=== PATIENT | female | born 1935 | race Caucasian/White ===

== ENCOUNTER 2020-07-27 14:42 | Observation (INO) | payer MEDICARE, OTHER ==
[2020-07-27] MEDS ORDERED: SODIUM CHLORIDE 0.9% 1,000 ML IV STA (15:13)
[2020-07-27 15:44] LABS: Basophils % (A) 0 %; Eosinophils % (A) 0 %; HCT 35.1 % (34.0-46.0); Hypochromasia Moderate; Lymphocytes # (A) 2.1 k/uL (1.0-4.8); Lymphocytes % (A) 35 %; MCH 27.6 pg (25.0-35.0); MCHC 31.4 g/dL (31.0-37.0); MCV 87.7 fL (80.0-100.0); Mean Platelet Volume 7.8; Monocytes # (A) 0.6 k/uL (0-1.0); Monocytes % (A) 10 %; Neutrophils % (A) 50 %; Platelet Count 310 k/uL (150-450); RBC 4.01 m/uL (3.80-5.40); RDW 14.8 % (11.5-15.5)
[2020-07-27 15:53] LABS: INR 1.1 (<1.2); Prothrombin Time 10.9 sec (9.0-12.0)
[2020-07-27 16:11] LABS: Albumin 3.9 g/dL (3.5-5.0); Calcium 10.3 mg/dL (8.4-10.2); Potassium 3.9 mmol/L (3.5-5.1); Total Bilirubin 0.4 mg/dL (0.2-1.3); Total Protein 6.9 g/dL (6.3-8.2)
--- NOTE | 2020-07-27 16:21 | ED ---
Weakness HPI - General Chief complaint: Weakness Stated complaint: NSTEMI/UTI Time Seen by Provider: 07/27/20 14:55 Source: patient, EMS, RN notes reviewed, old records reviewed Mode of arrival: EMS Limitations: no limitations - History of Present Illness Initial comments: Patient is a 5-year-old female who presents emergency department today for transfer from [facility]. Patient had complaints at their hospital for general fatigue and nausea with bouts of emesis for the past 4 days. Patient reports that she's had increased anxiety and general weakness. Patient was at a [facility] emergency department last night as well as [facility] 2 weeks before. Patient was resistant on Lexapro for new anxiety medication. Patient was evaluated to the ER and [facility] today she was found to have the concerns for an and STEMI of the troponin of 0.035 as well as a urinary tract infection. She denies any current chest pains or shortness of breath. - Related Data Allergies Allergy/AdvReac Type Severity Reaction Status Date / Time No Known Allergies Allergy Verified 07/27/20 17:00 Review of Systems ROS Statement: Those systems with pertinent positive or pertinent negative responses have been documented in the HPI. ROS Other: All systems not noted in ROS Statement are negative. Past Medical History Past Medical History: Cancer, GERD/Reflux, Hypertension History of Any Multi-Drug Resistant Organisms: None Reported Additional Past Surgical History / Comment(s): cancer removal in face/head/neck Past Psychological History: No Psychological Hx Reported Smoking Status: Former smoker Past Alcohol Use History: None Reported Past Drug Use History: None Reported General Exam - General Exam Comments Initial Comments: 85-year-old female. Alert and oriented. No significant distress. Limitations: no limitations General appearance: alert, in no apparent distress Head exam: Present: atraumatic, normocephalic, normal inspection Eye exam: Present: normal appearance, PERRL, EOMI. Absent: scleral icterus, conjunctival injection, periorbital swelling ENT exam: Present: normal exam, mucous membranes moist Neck exam: Present: normal inspection. Absent: tenderness, meningismus, lymphadenopathy Respiratory exam: Present: normal lung sounds bilaterally. Absent: respiratory distress, wheezes, rales, rhonchi, stridor Cardiovascular Exam: Present: regular rate GI/Abdominal exam: Present: soft, normal bowel sounds. Absent: distended, tenderness, guarding, rebound, rigid Extremities exam: Present: normal inspection, full ROM, normal capillary refill. Absent: tenderness, pedal edema, joint swelling, calf tenderness Back exam: Present: normal inspection Neurological exam: Present: alert, oriented X3, CN II-XII intact Psychiatric exam: Present: normal affect, normal mood Skin exam: Present: warm, dry, intact, normal color. Absent: rash Course Vital Signs 07/27/20 14:45 Temperature 97.6 F Pulse Rate 87 Respiratory 17 Rate Blood Pressure 159/89 O2 Sat by Pulse 98 Oximetry Medical Decision Making - Medical Decision Making 85-year-old female transferred from [facility] for her lab values concerning for an STEMI as well as urinary tract infection. Patient was there she received IV fluids. She was in for generalized weakness. Patient was given triple 50 mg by mouth morphine for leg pain started on heparin after an STEMI. She denies any current chest pain. Patient also received ANTIbiotics for urinary tract infection. At this time Patient did have heparin discontinued she denies any chest pain in her second troponin is came back normal. Patient was informed that she will be admitted for general weakness, concerns for urinary tract infection and removal repeat troponin. Again she denies any chest pain or specific complaints as complains of general fatigue and weakness. - Lab Data Result diagrams: 07/27/20 15:27 07/27/20 15:27 Lab Results 07/27/20 07/27/20 07/27/20 Range/Units 15:27 15:27 15:27 WBC 6.0 (3.8-10.6) k/uL RBC 4.01 (3.80-5.40) m/uL Hgb 11.0 L (11.4-16.0) gm/dL Hct 35.1 (34.0-46.0) % MCV 87.7 (80.0-100.0) fL MCH 27.6 (25.0-35.0) pg MCHC 31.4 (31.0-37.0) g/dL RDW 14.8 (11.5-15.5) % Plt Count 310 (150-450) k/uL MPV 7.8 Neutrophils % 50 % Lymphocytes % 35 % Monocytes % 10 % Eosinophils % 0 % Basophils % 0 % Neutrophils # 3.0 (1.3-7.7) k/uL Lymphocytes # 2.1 (1.0-4.8) k/uL Monocytes # 0.6 (0-1.0) k/uL Eosinophils # 0.0 (0-0.7) k/uL Basophils # 0.0 (0-0.2) k/uL Hypochromasia Moderate PT 10.9 (9.0-12.0) sec INR 1.1 (<1.2) APTT 37.0 H (22.0-30.0) sec Sodium 136 L (137-145) mmol/L Potassium 3.9 (3.5-5.1) mmol/L Chloride 104 (98-107) mmol/L Carbon Dioxide 25 (22-30) mmol/L Anion Gap 7 mmol/L BUN 10 (7-17) mg/dL Creatinine 1.28 H (0.52-1.04) mg/dL Est GFR (CKD-EPI)AfAm 45 (>60 ml/min/1.73 sqM) Est GFR (CKD-EPI)NonAf 39 (>60 ml/min/1.73 sqM) Glucose 123 H (74-99) mg/dL Calcium 10.3 H (8.4-10.2) mg/dL Total Bilirubin 0.4 (0.2-1.3) mg/dL AST 34 (14-36) U/L ALT 19 (4-34) U/L Alkaline Phosphatase 88 (38-126) U/L Troponin I (0.000-0.034) ng/mL Total Protein 6.9 (6.3-8.2) g/dL Albumin 3.9 (3.5-5.0) g/dL Coronavirus (PCR) (Not Detectd) 07/27/20 07/27/20 Range/Units 15:27 15:30 WBC (3.8-10.6) k/uL RBC (3.80-5.40) m/uL Hgb (11.4-16.0) gm/dL Hct (34.0-46.0) % MCV (80.0-100.0) fL MCH (25.0-35.0) pg MCHC (31.0-37.0) g/dL RDW (11.5-15.5) % Plt Count (150-450) k/uL MPV Neutrophils % % Lymphocytes % % Monocytes % % Eosinophils % % Basophils % % Neutrophils # (1.3-7.7) k/uL Lymphocytes # (1.0-4.8) k/uL Monocytes # (0-1.0) k/uL Eosinophils # (0-0.7) k/uL Basophils # (0-0.2) k/uL Hypochromasia PT (9.0-12.0) sec INR (<1.2) APTT (22.0-30.0) sec Sodium (137-145) mmol/L Potassium (3.5-5.1) mmol/L Chloride (98-107) mmol/L Carbon Dioxide (22-30) mmol/L Anion Gap mmol/L BUN (7-17) mg/dL Creatinine (0.52-1.04) mg/dL Est GFR (CKD-EPI)AfAm (>60 ml/min/1.73 sqM) Est GFR (CKD-EPI)NonAf (>60 ml/min/1.73 sqM) Glucose (74-99) mg/dL Calcium (8.4-10.2) mg/dL Total Bilirubin (0.2-1.3) mg/dL AST (14-36) U/L ALT (4-34) U/L Alkaline Phosphatase (38-126) U/L Troponin I 0.029 (0.000-0.034) ng/mL Total Protein (6.3-8.2) g/dL Albumin (3.5-5.0) g/dL Coronavirus (PCR) Not Detected (Not Detectd) 07/27/20 16:28 EKG performed showed normal sinus rhythm premature atrial complexes. Otherwise normal EKG. Ventricular rate of 89 bpm.. Intervals 112 ms. QRS ration is a 66 no seconds. QT QTc is 372/452 ms. Disposition Clinical Impression: Weakness, Elevated troponin, UTI (urinary tract infection) Disposition: ADMITTED IP TO THIS HOSP Condition: Stable Is patient prescribed a controlled substance at d/c from ED?: No Referrals: Dave Morales MD [Primary Care Provider] - 1-2 days Time of Disposition: 17:06
[2020-07-27] MEDS ORDERED: NALOXONE 0.4 MG/ML 1 ML VIAL IV PRN (17:06)
[2020-07-27] MEDS ORDERED: HYDROmorphone 0.5 MG/0.5 ML SYRINGE IVP PRN (17:06)
[2020-07-27] MEDS ORDERED: ONDANSETRON 4 MG/2 ML VIAL IVP PRN (17:06)
[2020-07-27] MEDS ORDERED: ACETAMINOPHEN TAB 325 MG TAB PO PRN (17:06)
[2020-07-27] MEDS ORDERED: IBUPROFEN 400 MG TAB PO PRN (17:06)
[2020-07-27] MEDS ORDERED: MORPHINE SULFATE 4 MG/ML SYRINGE IV PRN (17:06)
[2020-07-27] MEDS ORDERED: BUTALB/APAP/CAFF 50-325-40MG TAB PO PRN (18:08)
[2020-07-27] MEDS ORDERED: ALPRAZolam 0.25 MG TAB PO PRN (18:08)
--- NOTE | 2020-07-27 18:25 | P.HPIM ---
History of Present Illness H&P Date: 07/27/20 Chief Complaint: CC: generalized weakness Patient is a 84-year-old female with a past medical history of hypertension, hyperlipidemia anxiety hypothyroidism GERD and rheumatoid arthritis who recently lost her last week presented initially to [facility] with symptoms of feeling unwell. At [facility] patient's troponin was 0.035. Patient was started on heparin drip and transferred to [facility] for possible NSTEMI. Patient however denies any chest pain. Repeat troponin done at our facility shows troponin of 0.029. EKG shows no ischemic changes. ED physician discontinued heparin drip. Patient's UA showed 2+ bacteria. ED or dered 1 dose of IV Rocephin. However patient denies any dysuria or increased frequency. She also has no fever and does not meet sepsis criteria. Patient currently is complaining of intractable headache. Patient states that she gets episodes of headache ever since she had multiple surgeries on her face for skin cancer removal. Patient states that she takes Fioricet at home for her headaches. Patient states that she has some unsteady gait. ED wanted the patient admitted for PT OT evaluation. Review of Systems 10 ROS reviewed and are negative except as noted in HPI Past Medical History Past Medical History: Cancer, GERD/Reflux, Hypertension History of Any Multi-Drug Resistant Organisms: None Reported Additional Past Surgical History / Comment(s): cancer removal in face/head/neck Past Psychological History: No Psychological Hx Reported Smoking Status: Former smoker Past Alcohol Use History: None Reported Past Drug Use History: None Reported Medications and Allergies Home Medications Medication Instructions Recorded Confirmed Type ALPRAZolam [Xanax] 0.25 mg PO Q8HR PRN 07/27/20 07/27/20 History Atorvastatin Calcium [Lipitor] 10 mg PO DAILY 07/27/20 07/27/20 History Butalb/Acetaminophen/Caffeine 1 cap PO Q6H PRN 07/27/20 07/27/20 History [Fioricet 50-300-40 mg Capsule] Docusate [Colace] 100 mg PO HS 07/27/20 07/27/20 History Escitalopram [Lexapro] 20 mg PO DAILY 07/27/20 07/27/20 History Levothyroxine Sodium [Synthroid] 50 mcg PO DAILY 07/27/20 07/27/20 History Metoprolol Succinate (ER) [Toprol 25 mg PO DAILY 07/27/20 07/27/20 History Xl] Niacin [Niacin ER] 500 mg PO DAILY 07/27/20 07/27/20 History Omeprazole [PriLOSEC] 20 mg PO DAILY 07/27/20 07/27/20 History QUEtiapine [SEROquel] 25 mg PO HS 07/27/20 07/27/20 History lamoTRIgine [LaMICtal] 200 mg PO BID 07/27/20 07/27/20 History Allergies Allergy/AdvReac Type Severity Reaction Status Date / Time No Known Allergies Allergy Verified 07/27/20 17:07 Physical Exam Osteopathic Statement: *. No significant issues noted on an osteopathic structural exam other than those noted in the History and Physical/Consult. Vitals: Vital Signs Temp Pulse Resp BP Pulse Ox 07/27/20 14:45 97.6 F 87 17 159/89 98 Intake and Output 07/27/20 07/27/20 07/27/20 06:59 14:59 22:59 Other: Weight 67.132 kg General: [Alert and oriented, well nourished]. Eye: [PERRL, EOMI, normal conjunctiva]. HENT: [Normocephalic, clear tympanic membranes, normal hearing, moist oral mucosa, no scleral icterus, no sinus tenderness]. Neck: [Supple, non-tender, no carotid bruits, no JVD, no lymphadenopathy]. Lungs: [Clear to auscultation and percussion, non-labored respiration]. Heart: [Normal rate, regular rhythm, no murmur, gallop or edema]. Abdomen: [Soft, non-tender, non-distended, normal bowel sounds, no masses]. Musculoskeletal: [Normal range of motion and strength, no tenderness or swelling]. Skin: [Skin is warm, dry and pink, no rashes or lesions]. Neurologic: [Awake, alert, and oriented X3, CN II-XII intact]. Psychiatric: [Distress due to pain and anxious]. Results CBC & Chem 7: 07/27/20 15:27 07/27/20 15:27 Labs: Abnormal Lab Results - Last 24 Hours (Table) 12/25/20 12/25/20 12/25/20 Range/Units 15:27 15:27 15:27 Hgb 11.0 L (11.4-16.0) gm/dL APTT 37.0 H (22.0-30.0) sec Sodium 136 L (137-145) mmol/L Creatinine 1.28 H (0.52-1.04) mg/dL Glucose 123 H (74-99) mg/dL Calcium 10.3 H (8.4-10.2) mg/dL Assessment and Plan Assessment: #Generalized weakness with miscellaneous complaints likely due to bereavement as patient recently lost her last week -PT OT evaluation -UA shows 2+ bacteria however patient has no UTI symptoms. We'll stop antibiotics. #Acute on chronic headache -Patient states that her headaches have been ongoing since her facial surgery for removal of multiple skin cancers -We will obtain a CT head without contrast -Start migraine cocktail -Resume patient's home dose of Fioricet. #Anxiety -Resume home meds #Hypothyroidism -Resume Synthroid #Hypertension -Resume home meds #CKD stage III -patient appears to be at her baseline CODE STATUS:full code DVT prophylaxis: Heparin Discussed with: Patient, ER, rn Anticipated length of stay < than [address]: home vs SNF A total of 75 minutes was spent on the care of this complex patient more than 50% of the time was spent in counseling and care coordination.
[2020-07-27] MEDS ORDERED: PROCHLORPERAZINE INJ 10 MG/2 ML VIAL IVP ONE (18:40)
--- NOTE | 2020-07-27 19:03 | CT ---
EXAM: CT Head Without Intravenous Contrast CLINICAL HISTORY: ITS.REASON CT Reason: Headache TECHNIQUE: Axial computed tomography images of the head/brain without intravenous contrast. CTDI is 49.27 mGy and DLP is 1064 mGy-cm. This CT exam was performed using one or more of the following dose reduction techniques: automated exposure control, adjustment of the mA and/or kV according to patient size, and/or use of iterative reconstruction technique. COMPARISON: No relevant prior studies available. FINDINGS: Brain: Mild periventricular white matter low-density bilaterally and moderate volume loss consistent with age-appropriate atrophy and mild chronic small vessel disease. There is no evidence of acute large vessel infarct or intracranial hemorrhage. Ventricles: Unremarkable. No ventriculomegaly. Bones/joints: Unremarkable. No acute fracture. Soft tissues: Unremarkable. Sinuses: Unremarkable as visualized. No acute sinusitis. Mastoid air cells: Unremarkable as visualized. No mastoid effusion. IMPRESSION: Mild periventricular white matter low-density bilaterally and moderate volume loss consistent with age-appropriate atrophy and mild chronic small vessel disease. There is no evidence of acute large vessel infarct or intracranial hemorrhage.
[2020-07-27] MEDS: SODIUM CHLORIDE 0.9% 1,000 ML IV SCH (19:27)
[2020-07-27] MEDS: ATORVASTATIN 10 MG TAB PO SCH (19:42)
[2020-07-27] MEDS: diphenhydrAMINE 50 MG/ML 1 ML VIAL IVP SCH ×2 (19:42→23:44)
[2020-07-27] MEDS: KETOROLAC 15 MG/ML 1 ML VIAL IM SCH ×2 (20:19→23:44)
[2020-07-27] MEDS: lamoTRIgine 100 MG TAB PO SCH (20:34)
[2020-07-27] MEDS ORDERED: QUEtiapine 25 MG TAB PO SCH (21:00)
[2020-07-27] MEDS ORDERED: DOCUSATE 100 MG CAP PO SCH (21:00)
[2020-07-27] MEDS: PROCHLORPERAZINE INJ 10 MG/2 ML VIAL IVP SCH (23:13)
[2020-07-28] MEDS: KETOROLAC 15 MG/ML 1 ML VIAL IM SCH ×2 (01:19→12:43)
[2020-07-28] MEDS: SODIUM CHLORIDE 0.9% 1,000 ML IV SCH (01:22)
[2020-07-28] MEDS: diphenhydrAMINE 50 MG/ML 1 ML VIAL IVP SCH ×2 (05:43→12:42)
[2020-07-28] MEDS: PROCHLORPERAZINE INJ 10 MG/2 ML VIAL IVP SCH ×2 (05:44→12:43)
[2020-07-28] MEDS ORDERED: LEVOTHYROXINE 50 MCG TAB PO SCH (06:30)
[2020-07-28] MEDS ORDERED: PANTOPRAZOLE 40 MG TABLET PO SCH (07:30)
[2020-07-28 07:49] VITALS: BP 167/78; PULSE 88; RESP 16; TEMP 97.9
[2020-07-28] MEDS: lamoTRIgine 100 MG TAB PO SCH (08:30)
[2020-07-28] MEDS: ATORVASTATIN 10 MG TAB PO SCH (08:30)
[2020-07-28 08:58] LABS: Calcium 9.8 mg/dL (8.4-10.2); Potassium 3.7 mmol/L (3.5-5.1)
[2020-07-28] MEDS ORDERED: NIACIN TR 500 MG CAPLET PO SCH (09:00)
[2020-07-28] MEDS ORDERED: PANTOPRAZOLE 40 MG/10 ML VIAL IV SCH (09:00)
[2020-07-28] MEDS ORDERED: METOPROLOL SUCCINATE (ER) 25 MG TAB.ER.24H PO SCH (09:00)
[2020-07-28] MEDS ORDERED: ESCITALOPRAM 20 MG TAB PO SCH (09:00)
[2020-07-28] MEDS ORDERED: ACETAMINOPHEN TAB 325 MG TAB PO PRN (10:07)
--- NOTE | 2020-07-28 10:18 | P.DS ---
Providers Date of admission: 07/27/20 16:48 Expected date of discharge: 07/28/20 Attending physician: Coral Marion MD [facility] Course: Discharge Diagnosis: #Generalized weakness with miscellaneous complaints likely due to bereavement as patient recently lost her last week #Acute on chronic headache -Patient states that her headaches have been ongoing since her facial surgery for #Anxiety #Hypothyroidism #Hypertension #CKD stage III Hospital Course: Patient is a 84-year-old female with a past medical history of hypertension, hyperlipidemia anxiety hypothyroidism GERD and rheumatoid arthritis who recently lost her last week presented initially to [facility] with symptoms of feeling unwell. At [facility] patient's troponin was 0.035. Patient was started on heparin drip and transferred to [facility] for possible NSTEMI. Patient however denies any chest pain. Repeat troponin done at our facility shows troponin of 0.029 and 0.032. EKG shows no ischemic changes. ED physician discontinued heparin drip as NSTEMI was ruled out. Patient's UA showed 2+ bacteria. ED ordered 1 dose of IV Rocephin. However patient denies any dysuria or increased frequency. She also has no fever and does not meet sepsis criteria. Patient currently is complaining of intractable headache. Patient states that she gets episodes of headache ever since she had multiple surgeries on her face for skin cancer removal. Patient states that she takes Fioricet at home for her headaches. Patient states that she has some unsteady gait. ED wanted the patient admitted for PT OT evaluation. Patient was started on a migraine cocktail. The following day patient headache had resolved. Her CT head was unremarkable. Patient however is complaining of some left calf pain. She says that applies lotion which helps to relieve the pain. There was no swelling or tenderness to palpate on the left calf. I told patient she is likely dehydrated and is experiencing some cramping pain. Patient was ready to go home. I will give patient a bolus of 500 mL before discharge. Patient deemed stable for discharge. Patient also during hospitalization was able to walk to the bathroom independently. Patient also refuses to go to inpatient rehab even if she qualified. Therefore I canceled the PT OT consult. Patient instructed to resume all her other home meds. General examination - Alert and Oriented 3 in NAD Heart - + S1S2 no murmurs Lungs - Clear to auscultation Abdomen soft NT ND +ve BS Extremities - No edema [employer] - Moving all 4 extremities spontaneously Psych - anxious A total of [32] minutes of time were spent preparing this complex discharge summary . Patient Condition at Discharge: Stable Plan - Discharge Summary New Discharge Prescriptions: Continue Escitalopram [Lexapro] 20 mg PO DAILY Docusate [Colace] 100 mg PO HS Butalb/Acetaminophen/Caffeine [Fioricet 50-300-40 mg Capsule] 1 cap PO Q6H PRN PRN Reason: Migraine Headache ALPRAZolam [Xanax] 0.25 mg PO Q8HR PRN PRN Reason: Anxiety Omeprazole [PriLOSEC] 20 mg PO DAILY Niacin [Niacin ER] 500 mg PO DAILY Metoprolol Succinate (ER) [Toprol XL] 25 mg PO DAILY Levothyroxine Sodium [Synthroid] 50 mcg PO DAILY Atorvastatin Calcium [Lipitor] 10 mg PO DAILY lamoTRIgine [LaMICtal] 200 mg PO BID QUEtiapine [SEROquel] 25 mg PO HS Discharge Medication List ALPRAZolam [Xanax] 0.25 mg PO Q8HR PRN 07/27/20 [History] Atorvastatin Calcium [Lipitor] 10 mg PO DAILY 07/27/20 [History] Butalb/Acetaminophen/Caffeine [Fioricet 50-300-40 mg Capsule] 1 cap PO Q6H PRN 07/27/20 [History] Docusate [Colace] 100 mg PO HS 07/27/20 [History] Escitalopram [Lexapro] 20 mg PO DAILY 07/27/20 [History] Levothyroxine Sodium [Synthroid] 50 mcg PO DAILY 07/27/20 [History] Metoprolol Succinate (ER) [Toprol XL] 25 mg PO DAILY 07/27/20 [History] Niacin [Niacin ER] 500 mg PO DAILY 07/27/20 [History] Omeprazole [PriLOSEC] 20 mg PO DAILY 07/27/20 [History] QUEtiapine [SEROquel] 25 mg PO HS 07/27/20 [History] lamoTRIgine [LaMICtal] 200 mg PO BID 07/27/20 [History] Follow up Appointment(s)/Referral(s): Dave Morales MD [Primary Care Provider] - 1-2 days
== END 2020-07-28 12:40 | disposition home or self-care (01) ==
LOC: EC 14:42 → 1SOBS 16:48
PROVIDERS: ADMIT Internal Medicine; ATTEND Internal Medicine
DX: R53.1 Weakness (principal); R53.83 Other fatigue; R11.0 Nausea; R51.9 Headache, unspecified; R77.8 Other specified abnormalities of plasma proteins; R82.71 Bacteriuria; I49.1 Atrial premature depolarization; F41.9 Anxiety disorder, unspecified; E03.9 Hypothyroidism, unspecified; I12.9 Hypertensive chronic kidney disease with stage 1 through stage 4 chronic kidney disease, or unspecified chronic kidney disease; N18.30 Chronic kidney disease, stage 3 unspecified; K21.9 Gastro-esophageal reflux disease without esophagitis; E78.5 Hyperlipidemia, unspecified; M06.9 Rheumatoid arthritis, unspecified; R26.81 Unsteadiness on feet; M79.662 Pain in left lower leg; Z20.828 Contact with and (suspected) exposure to other viral communicable diseases; Z85.828 Personal history of other malignant neoplasm of skin; Z87.891 Personal history of nicotine dependence; Z63.4 Disappearance and death of family member; Z79.899 Other long term (current) drug therapy; Z79.890 Hormone replacement therapy
CPT/HCPCS: 96361 ×3; 96372 ×2; 96374; 96375 ×2; 96376 ×2; 99285; 36415; 93005; 80053; 80048; 83605; 84484; 85025; 85610; 85730; 87635; 70450; G0378 ×2; J1200; J0780; J1885 ×2; C9113